=== PATIENT | female | born 1970 | race Caucasian/White ===

== ENCOUNTER → 2016-10-14 | Outpatient (CLI) | payer BC ==
[~2016-10-14] MED LIST: AMOXICILLIN 50500 MG PO; AURALGAN O10 ML/BOTT OT; NOMEDS *
--- NOTE | 2016-10-15 09:02 | RADIOLOGY REPORT PS360 ---
CT ABD PELVIS W/WO CONTRAST INDICATION: RUQ PAIN HX OF TRAUMA AGE 2 ORDERING PHYSICIAN: Timothy Alarcon MD PATIENT AGE: 45 years COMPARISON: None TECHNIQUE: Axial images are obtained without and with IV contrast. Sagittal and coronal reformatted images are reviewed as well. Oral contrast was also utilized. FINDINGS: The liver, spleen, adrenal glands, pancreas, and gallbladder have an unremarkable appearance. No perihepatic or perisplenic fluid collections are evident. There is a 1.7 x 1.6 cm isodense lesion projecting off the lower pole of the right kidney. This is complex in nature isodense on the unenhanced images and showing some central heterogeneous enhancement on the immediate and delayed images. Probable small cyst involving the left kidney laterally at 4 mm. No hydronephrosis or obstructing ureteral calculus evident. No evidence of adenopathy. Unremarkable appendix. Images of the pelvis show a tampon present. No focal inflammatory change mass abnormal fluid collection or adenopathy apparent No acute bony anomalies. IMPRESSION: 1. Complex 1.7 x 1.6 cm isodense lesion projecting off the lower pole of the right kidney. Differential diagnosis would include complex cyst versus neoplasm. Recommend ultrasound for further evaluation to determine cystic or solid nature of the lesion. 2. Otherwise negative CT abdomen and pelvis.
== END ==
LOC: RAD 11:00
DX: R10.11 Right upper quadrant pain (principal)
CPT/HCPCS: Q9967

== ENCOUNTER → 2016-10-21 | Outpatient (CLI) | payer BC ==
--- NOTE | 2016-10-21 15:02 | RADIOLOGY REPORT PS360 ---
US [id number] HISTORY: RT KIDNEY ABNORMAL CT ORDERING PHYSICIAN: Timothy Alarcon MD PATIENT AGE: 45 years COMPARISON: None FINDINGS: RIGHT KIDNEY:9.4 x 3.8 x 7.5 cm. There is a hypoechoic lesion along the lower pole the right kidney have a somewhat lobular contour. This measures 2 x 1.6 cm and corresponds to the abnormality noted on CT. Although the lesion is hypoechoic, there does appear to be some low-level echoes. There is some enhanced through transmission of sound. This could represent a complex cyst. However, with the CT appearance and ultrasound appearance, one cannot exclude a neoplasm. Further workup with MRI without and with contrast is suggested as the ultrasound appearance does NOT confirm a simple cyst LEFT KIDNEY:Unremarkable. No hydronephrosis. Normal size and echogenicity. 11 x 6 x 5.5 cm. A small area of increased echogenicity is present in the upper pole suggesting a small benign angiomyolipoma OTHER FINDINGS: No other pertinent findings IMPRESSION: Complex 2 cm lesion involves the lower pole of the right kidney corresponding to the CT abnormality. Cannot confirm a simple cyst based on the ultrasound appearance. Consider MRI of the kidneys without and with contrast for further evaluation
--- NOTE | 2016-10-23 13:20 | RADIOLOGY REPORT PS360 ---
DIG MAMM-SCREEN JOHN W/CAD CAD Screening COMPARISON: None, this is baseline INDICATION: There is a history of breast cancer in the patient's paternal cousin diagnosed before menopause. There is been previous biopsies on each breast. TECHNIQUE: Standard CC and MLO images were obtained. R2 CAD reviewed. FINDINGS: Moderate diffuse fibroglandular densities are seen in the subareolar regions of both breasts. There is some asymmetrical nodularity lower inner quadrant right breast. There is a benign-appearing calcification right breast. There are no suspicious microcalcifications. IMPRESSION: Moderate diffuse breast density with asymmetric nodularity right breast as described and recommend the patient return for spot compression views of the area marked on the film and ultrasound for additional evaluation BI-RADS CATEGORY: 0_Incomplete: Need additional imaging RECOMMENDED FOLLOWUP: ADD ADDITIONAL IMAGING (A letter has been sent to the patient regarding results of the study.)
== END ==
LOC: RAD 08:47
DX: N60.19 Diffuse cystic mastopathy of unspecified breast (principal); R93.5 Abnormal findings on diagnostic imaging of other abdominal regions, including retroperitoneum
CPT/HCPCS: G0202